=== PATIENT | female | born 1985 | race Caucasian/White ===

== ENCOUNTER 2016-10-27 10:27 | Emergency (ER) | payer OTHER ==
[~2016-10-27] VITALS: Ht 167.6 cm; Wt 68.0 kg
--- NOTE | ~2016-10-27 | EKG ---
[address] [address] ELECTROCARDIOGRAM REPORT Name: ANISHA RENDON [id number] Admission: 10/27/16 Attend Phys: Discharge: 10/27/16 Date of : 83 Report #: [id number] THIS REPORT FOR: //name// 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
[2016-10-27 10:51] LABS: HEMATOCRIT 39.9 % (37.0-47.0); HEMOGLOBIN 14.2 gm/dL (12.0-15.0); MCH 31.7 pg (26.0-34.0); MCHC 35.6 g/dL (28.0-37.0); MCV 88.9 fL (80.0-100.0); PLATELET COUNT 253 thou/uL (150-400); RBC 4.49 mil/uL (4.20-5.00); RDW 13.6 % (10.5-14.5); WBC 4.6 thou/uL (4.0-11.0)
[2016-10-27 10:56] LABS: MANUAL DIFF YES
[2016-10-27 10:59] LABS: ANION GAP 7 mmol/L (7-16); BUN 3 mg/dL (7-18); CALCIUM 9.3 mg/dL (8.5-10.1); CHLORIDE 105 mmol/L (98-107); CO2 26 mmol/L (21-32); CREATININE 0.8 mg/dL (0.6-1.0); GLUCOSE 122 mg/dL (74-106); POTASSIUM 3.2 mmol/L (3.5-5.1); SODIUM 138 mmol/L (136-145)
[2016-10-27] MEDS ORDERED: ATIVAN0.5 MG PO (11:05)
[2016-10-27 11:08] LABS: TROPONIN-I < 0.04 ng/mL (<0.04-0.07)
[2016-10-27 11:28] LABS: ABSOLUTE NEUTROPHILS 2.6 thou/uL (1.4-8.2); PLATELET ESTIMATE NORMAL; TOTAL CELL COUNT 100
[2016-10-27 11:42] LABS: URINE BILIRUBIN NEGATIVE (Negative); URINE BLOOD NEGATIVE (Negative); URINE COLOR YELLOW; URINE GLUCOSE-RANDOM* NEGATIVE (Negative); URINE KETONES NEGATIVE (Negative); URINE NITRITE NEGATIVE (Negative); URINE PROTEIN (DIPSTICK) NEGATIVE (Negative); URINE UROBILINOGEN 0.2 E.U./dl (0.2-1.0)
[2016-10-27 12:06] VITALS: BP 112/69
== END 2016-10-27 12:07 | disposition home or self-care (01) ==
LOC: ER 10:27
PROVIDERS: Emergency Medicine
DX: R07.89 Other chest pain (principal); E87.6 Hypokalemia; F43.9 Reaction to severe stress, unspecified; Z88.1 Allergy status to other antibiotic agents